=== PATIENT | female | born 1975 | race Caucasian/White ===

== ENCOUNTER 2019-07-27 14:10 | Inpatient (IN) | payer OTHER ==
--- OUTSIDE RECORDS SUMMARY | 2019-07-27 14:26 | XMS REPORT | Continuity of Care Document ---
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 Medicine Problems Description No Information Available Social History Type Date Description Comments Sex Unknown ETOH Use Denies alcohol use Tobacco Use Start: Unknown Patient has never smoked Recreational Drug Use Denies Drug Use Smoking Status Reviewed: 06/16/19 Patient has never smoked Exercise Type/Frequency Exercises regularly Allergies, Adverse Reactions, Alerts Active Allergies Reaction Severity Comments Date Amoxicillin Hives 06/11/2019 FD&C Red 40 Light GI Reaction 06/11/2019 Medications Active Medications SIG Qnty Indications Ordering Date Provider Propranolol HCL 1 by mouth twice a Unknown 20mg day Tablets Prazosin HCL Unknown 1mg Capsules Advair Diskus 1 puff twice a day Unknown 250-50mcg/Dose Aerosol Ventolin HFA 1 to 2 inhalations Unknown 108(90Base) every 4 hours as mcg/Act Aerosol needed Chlorthalidone 1 by mouth every Unknown 25mg day Tablets Vitamin D 1 by mouth every Unknown (Cholecalciferol) day 25mcg (1000 Ut) Tablets Irbesartan 1 by mouth every Unknown 300mg Tablets day Sertraline HCL 1 by mouth every Unknown 100mg day with other Tablets doses to equal 175 mg daily Sertraline HCL 1 by mouth every Unknown 50mg day with other Tablets doses to equal 175 mg daily Sertraline HCL 1 by mouth every Unknown 25mg day with other Tablets doses to equal 175 mg daily Immunizations CPT Code Status Date Vaccine Lot # [id number] Given 06/01/2008 Influenza Virus 3Yrs & Over 35835 Given 06/01/2008 Influenza Virus 3Yrs & Over 80404 Given 04/30/2008 Hepatitis B Vaccine Adult Dosage 30810 Given 04/30/2008 Hepatitis B Vaccine Adult Dosage 92848 Given 03/22/2008 Hepatitis B Vaccine Adult Dosage 42372 Given 03/22/2008 Meningitis MCV4 MenACWY Meningococcal Conjugate Vaccine 61214 Given 03/22/2008 Meningitis MCV4 MenACWY Meningococcal Conjugate Vaccine 59072 Given 03/22/2008 Hepatitis A Vaccine Adult Dosage 06179 Given 03/22/2008 Hepatitis A Vaccine Adult Dosage 97721 Given 06/05/2006 Influenza Virus 3Yrs & Over 17687 Given 06/05/2006 Influenza Virus 3Yrs & Over Vital Signs Date Vital Result Comment 06/16/2019 10:01am Height 67 inches 5'7" Weight 291.00 lb Heart Rate 72 /min BP Systolic 117 mmHg BP Diastolic 68 mmHg Respiratory Rate 18 /min Body Temperature 99.0 F BMI (Body Mass Index) 45.6 kg/m2 Results Description No Information Available Procedures Description No Information Available Medical Devices Description No Information Available Encounters Description No Information Available Assessments Date Code Description Provider 06/16/2019 K42.9 Umbilical hernia without obstruction or Emiliano Iniguez MD , FACS gangrene 06/16/2019 E66.01 Morbid (severe) obesity due to excess Emiliano Iniguez MD, FACS calories Plan of Treatment 06/16/2019 - Emiliano Iniguez MD, FACSK42.9 Umbilical hernia without obstruction or gangreneFollow up:As [id number] Morbid (severe) obesity due to excess caloriesReferral:Carine Hernandez MD, Internal Medicine Functional Status Description No Information Available Mental Status Description No Information Available Referrals Refer to Reason for Referral Status Appt Date Carine Hernandez MD Medically supervised weight loss prior to Created hernia repair [address] [place] [address] [phone]
--- NOTE | 2019-07-27 15:10 | ED ---
Psychiatric Complaint - HPI Summary HPI Summary: 41-year-old female presents with suicidal ideations since the past week. States that she is undergoing a stress due to the holidays and anniversaries. She states that she is planning to take her medications. She has been stocking up on her medications (propanlol) in plans to overdose. She states that she talked with her therapist and was advised to come here. Denies any drug or alcohol use. Has history asthma and depression. Denies any shortness breath. - History Of Current Complaint Chief Complaint: EDSuicidal Time Seen by Provider: 07/27/19 14:49 - Allergies/Home Medications Allergies/Adverse Reactions: Allergies Allergy/AdvReac Type Severity Reaction Status Date / Time amoxicillin Allergy Hives/Diff. Verified 07/27/19 14:15 Breathing/I tching Home Medications: Home Medications Albuterol HFA INHALER* [Ventolin HFA Inhaler*] 2 puff INH Q4H PRN 07/27/19 [ History Confirmed 07/27/19] Chlorthalidone TAB* [Hygroton TAB*] 25 mg PO DAILY 07/27/19 [History Confirmed 07/27/19] Fluticasone-Salmeterol 250-50* [Advair Diskus 250-50*] 1 puff INH BID 07/27/19 [ History Confirmed 07/27/19] Irbesartan (NF) [Avapro (NF)] 300 mg PO DAILY 07/27/19 [History Confirmed ] Prazosin CAP* [Minipress CAP*] 5 mg PO BEDTIME 07/27/19 [History Confirmed 07/27] Propranolol TAB* [Inderal TAB*] 60 mg PO BID 07/27/19 [History Confirmed ] Sertraline* [Zoloft*] 200 mg PO DAILY 07/27/19 [History Confirmed 07/27/19] PMH/Surg Hx/FS Hx/Imm Hx Infectious Disease History: No Infectious Disease History: Denies: Traveled Outside the [place] in Last 30 Days Review of Systems Negative: Fever Negative: Chest Pain Negative: Shortness Of Breath Positive: Depressed All Other Systems Reviewed And Are Negative: Yes Physical Exam Triage Information Reviewed: Yes Vital Signs On Initial Exam: Initial Vitals Temp Pulse Resp BP Pulse Ox 97.2 F 71 19 157/75 98 07/27/19 14:12 07/27/19 14:12 07/27/19 14:12 07/27/19 14:12 07/27/19 14:12 Vital Signs Reviewed: Yes Appearance: Positive: Well-Appearing Skin: Positive: Warm, Dry Head/Face: Positive: Normal Head/Face Inspection Eyes: Positive: Normal, Conjunctiva Clear ENT: Positive: Pharynx normal Respiratory/Lung Sounds: Positive: Clear to Auscultation, Breath Sounds Present Cardiovascular: Positive: Normal, RRR Musculoskeletal: Positive: Normal Neurological: Positive: Normal Psychiatric: Positive: Depressed Procedures - Sedation Patient Received Moderate/Deep Sedation with Procedure: No Diagnostics - Vital Signs Vital Signs Temp Pulse Resp BP Pulse Ox 07/27/19 14:12 97.2 F 71 19 157/75 98 - Laboratory Result Diagrams: 07/27/19 14:59 07/27/19 14:59 Lab Statement: Any lab studies that have been ordered have been reviewed, and results considered in the medical decision making process. Course/Dx - Course Course Of Treatment: 41-year-old female presents with suicidal ideations since the past week. States that she is undergoing a stress due to the holidays and anniversaries. She states that she is planning to take her medications. She has been stocking up on her medications (propanlol) in plans to overdose. She states that she talked with her therapist and was advised to come here. Denies any drug or alcohol use. Has history asthma and depression. Denies any shortness breath. On exam has normal physical exam. is medical clear to mental health. patient will be signed out to dr mendoza pending mhe. - Differential Dx/Clinical Impression Differential Diagnosis/HQI/PQRI: Positive: Anxiety, Depression, Suicidal Ideation Provider Diagnosis: Depression Discharge ED - Sign-Out/Discharge Documenting (check all that apply): Sign-Out Patient Signing out patient TO: Miguel Mendoza - Discharge Plan Referrals: Sharona Novak DO [Primary Care Provider] -
[2019-07-27 15:13] LABS: ABS Eosinophils 0.2 10^3/ul (0-0.6); ABS Monocytes 0.4 10^3/ul (0-0.8); ABS Neutrophils 3.9 10^3/ul (1.5-7.7); Eosinophil % 3.4 %; Hematocrit 35 % (35-47); Hemoglobin 11.9 g/dL (12.0-16.0); Lymphocyte % 18.2 %; Mean Corpuscular HGB Conc 34 g/dL (31-36); Mean Corpuscular Hemoglobin 29 pg (27-31); Mean Corpuscular Volume 85 fL (80-97); Mean Platelet Volume 7.9 fL (7.4-10.4); Platelet Count 217 10^3/uL (150-450); Red Blood Count 4.16 10^6 /uL (3.70-4.87); Red Cell Distribution Width 16 % (10-15); White Blood Count 5.5 10^3/uL (3.5-10.8)
[2019-07-27 15:26] LABS: Urine Appearance Cloudy; Urine Bilirubin Negative (Negative); Urine Blood 3+ (Negative); Urine Color Amber; Urine Glucose Negative (Negative); Urine Ketones Negative (Negative); Urine Nitrite Negative (Negative); Urine Protein 1+(30 mg/dL) (Negative); Urine Specific Gravity 1.014 (1.010-1.030); Urine Urobilinogen Negative (Negative)
[2019-07-27 15:30] LABS: Urine Bacteria 1+ (Absent); Urine Red Blood Cell 3+(>10/hpf) (Absent); Urine Squamous Epithelial Cell Present (Absent); Urine White Blood Cell 3+(>20/hpf) (Absent)
[2019-07-27 16:00] LABS: Albumin 4.2 g/dL (3.2-5.2); Anion Gap 9 mmol/L (2-11); CO2 Carbon Dioxide 29 mmol/L (22-32); Calcium 10.3 mg/dL (8.6-10.3); Chloride 101 mmol/L (101-111); Sodium 139 mmol/L (135-145)
[2019-07-27 16:06] LABS: ALT 22 U/L (7-52); AST 18 U/L (13-39); Albumin/Globulin Ratio 1.4 (1-3); Alkaline Phosphatase 52 U/L (34-104); BUN/Creatinine Ratio 20.5 (8-20); Blood Urea Nitrogen 16 mg/dL (6-24); EGFR African American 96.6 (>60); EGFR Non-African American 79.9 (>60); Globulin 3.1 g/dL (2-4); Glucose 113 mg/dL (70-100); Total Protein 7.3 g/dL (6.4-8.9)
[2019-07-27 16:08] LABS: Alcohol < 10 mg/dL (<10); Salicylate < 2.50 mg/dL (<30)
[2019-07-27 16:08] LABS: Urine Benzodiazepine Screen None Detected (None Detect); Urine Opiates Screen None Detected (None Detect)
[2019-07-27 16:11] LABS: Acetaminophen < 15 mcg/mL
[2019-07-27 16:20] LABS: TSH (Thyroid Stimulating Horm) 3.46 mcIU/mL (0.34-5.60)
--- NOTE | 2019-07-28 03:51 | ED ---
Progress - Progress Note Progress Note: Pt is a signout from [facility], pending MHE. Course/Dx - Course Course Of Treatment: Pt is a signout from [facility], pending MHE. As per Dr. Iyer, pt will be admitted to [facility] with dx of depression. - Diagnoses Provider Diagnoses: Depression Discharge ED - Sign-Out/Discharge Documenting (check all that apply): Patient Departure, Receiving Sign-Out Receiving patient FROM: Suly Wolfe - Discharge Plan Condition: Stable Disposition: PSYCHIATRIC FACILITY-[facility] [place] Referrals: Sharona Novak DO [Primary Care Provider] - - Billing Disposition and Condition Condition: STABLE Disposition: Psychiatric Facility [facility] [place] - Attestation Statements Document Initiated by Scribe: Yes Documenting Scribe: Tanja Guillermo Provider For Whom Jez is Documenting (Include Credential): Miguel Parekh MD. Scribe Attestation: Tanja Jacobs, fransiscoed for Miguel Parekh MD. on 07/28/19 at 0639. Scribe Documentation Reviewed: Yes Provider Attestation: The documentation as recorded by the scribe, Tanja Guillermo accurately reflects the service I personally performed and the decisions made by Miguel ceron MD. Status of Scribe Document: Viewed
[2019-07-28] MEDS ORDERED: Al Hydrox/Mg Hydrox/Simet LIQ* 30 ML UDC PO PRN (13:42)
[2019-07-28] MEDS ORDERED: Acetaminophen TAB* 325 MG PO PRN (13:42)
[2019-07-28] MEDS ORDERED: Albuterol HFA INHALER* 8 gm MDI INH PRN (14:41)
[2019-07-28] MEDS ORDERED: hydrOXYzine HCL TAB* 50 MG PO PRN (14:45)
[2019-07-28] MEDS ORDERED: IRBESARTAN 150 MG PO SCH (15:00)
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
[2019-07-28] MEDS: Sertraline* 100 MG TAB PO SCH (16:42)
[2019-07-28] MEDS: Chlorthalidone TAB* 50 MG PO SCH (16:43)
[2019-07-28] MEDS: cloNIDine TAB* 0.1 MG PO SCH ×2 (16:43→21:45)
[2019-07-28] MEDS: Mometasone/Formoter 200/5 MDI INH SCH (21:47)
[2019-07-29] MEDS: Mometasone/Formoter 200/5 MDI INH SCH ×2 (09:25→21:41)
[2019-07-29] MEDS: Chlorthalidone TAB* 50 MG PO SCH (09:26)
[2019-07-29] MEDS: Losartan TAB* 25 MG PO SCH (09:27)
[2019-07-29] MEDS: Vitamin THERAPEUTIC TAB PO SCH (09:28)
[2019-07-29] MEDS: Sertraline* 100 MG TAB PO SCH (09:28)
[2019-07-29] MEDS: cloNIDine TAB* 0.1 MG PO SCH ×3 (09:29→21:41)
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
[2019-07-30] MEDS: Chlorthalidone TAB* 50 MG PO SCH (08:54)
[2019-07-30] MEDS: Mometasone/Formoter 200/5 MDI INH SCH ×2 (08:54→21:56)
[2019-07-30] MEDS: cloNIDine TAB* 0.1 MG PO SCH ×3 (08:55→21:55)
[2019-07-30] MEDS: Vitamin THERAPEUTIC TAB PO SCH (08:55)
[2019-07-30] MEDS: Losartan TAB* 25 MG PO SCH (08:55)
[2019-07-30] MEDS: Sertraline* 100 MG TAB PO SCH (08:56)
--- NOTE | 2019-07-30 11:31 | PN ---
BSU: Group Therapy Note - Service Type Service Type: 61186 Group Psychotherapy - Cognitive Behavioral Group Therapy ( CBT):Patient was attentive and participatory in CBT programming this morning, and remained in good behavioral control. Patient expressed positive insights regarding relevant treatment interventions and goals.
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
[2019-07-31] MEDS: Mometasone/Formoter 200/5 MDI INH SCH (08:40)
[2019-07-31] MEDS: cloNIDine TAB* 0.1 MG PO SCH ×2 (08:40→14:07)
[2019-07-31] MEDS: Chlorthalidone TAB* 50 MG PO SCH (08:41)
[2019-07-31] MEDS: Sertraline* 100 MG TAB PO SCH (08:43)
[2019-07-31] MEDS: Losartan TAB* 25 MG PO SCH (08:44)
[2019-07-31] MEDS: Vitamin THERAPEUTIC TAB PO SCH (08:44)
--- NOTE | 2019-07-31 11:47 | PN ---
BSU: Group Therapy Note - Service Type Service Type: [id number] Group Psychotherapy - Cognitive Behavioral Group Therapy ( CBT):Patient was attentive and participatory in CBT programming this morning, and remained in good behavioral control. Patient expressed positive insights regarding relevant treatment interventions and goals.
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
[2019-07-31 14:07] VITALS: BP 132/69
== END 2019-07-31 14:55 | disposition home or self-care (01) | DRG 882 ==
LOC: ED 14:10 → BSU 07-28 11:00
PROVIDERS: ADMIT Psychiatry & Neurology Psychiatry; ATTEND Psychiatry & Neurology Psychiatry
DX: F43.10 Post-traumatic stress disorder, unspecified (principal); F33.2 Major depressive disorder, recurrent severe without psychotic features; R45.851 Suicidal ideations; Z62.810 Personal history of physical and sexual abuse in childhood; J45.909 Unspecified asthma, uncomplicated; I10 Essential (primary) hypertension; Z79.51 Long term (current) use of inhaled steroids; Z79.899 Other long term (current) drug therapy; Z88.1 Allergy status to other antibiotic agents; Z81.1 Family history of alcohol abuse and dependence
CPT/HCPCS: 36415; 80053; 80307; 80320; 80329; 81003; 81015; 84443; 85025; 87077; 87086; 90853; 99222; 99231; 99238; 99284; A9270-GY; G0480